=== PATIENT | female | born 1945 | race Caucasian/White ===

== ENCOUNTER 2019-10-03 06:17 | Day surgery (SDC) ==
[2019-10-03] MEDS ORDERED: KEFZOL 1 GM/D5W 1 GM/50 ML IVPB ONE (06:39)
[2019-10-03] MEDS ORDERED: LR 1,000 ML ONE (06:39)
[2019-10-03] MEDS ORDERED: DIPRIVAN 1% ONE (07:14)
[2019-10-03] MEDS ORDERED: NORCURON ONE (07:15)
[2019-10-03] MEDS ORDERED: SODIUM CHLORIDE 0.9% 10 ML ONE (07:15)
[2019-10-03] MEDS ORDERED: XYLOCAINE-MPF 2% ONE (07:15)
[2019-10-03] MEDS ORDERED: SENSORCAINE-MPF 0.5%/EPI 1:200,000 ONE (08:23)
--- NOTE | 2019-10-03 08:27 | EKG Report ---
Test Performed on : 10/03/2019 07:43:59 AM Test Reason : pre op Blood Pressure : / mmHG Vent. Rate : 057 BPM Atrial Rate : 057 BPM P-R Int : 110 ms QRS Dur : 066 ms QT Int : 466 ms P-R-T Axes : 059 069 015 degrees QTc Int : 453 ms Sinus bradycardia. with short IA Nonspecific T wave abnormality Abnormal ECG No previous ECGs available Confirmed by John Curry MD ([id number]) on 10/03/2019 7:35:06 PM
[2019-10-03] MEDS ORDERED: FENTANYL ONE (08:37)
[2019-10-03] MEDS ORDERED: ZOFRAN ONE (08:40)
[2019-10-03] MEDS ORDERED: OFIRMEV 1000 MG/ISOTONIC SOLN 1,000 MG/100 ML BOTTLE ONE (08:40)
[2019-10-03] MEDS ORDERED: ROBINUL ONE (10:05)
--- NOTE | 2019-10-03 11:01 | OPERATIVE NOTE ---
PROCEDURE DATE: 10/03/2019 PREOPERATIVE DIAGNOSES: 1. Right thyroid nodule. 2. Hyperthyroidism. POSTOPERATIVE DIAGNOSES: 1. Right thyroid nodule. 2. Hyperthyroidism. PRINCIPAL PROCEDURE: Total thyroidectomy. SURGEON: Jonelle Malik MD. CEILING CLEANER: Dr. Urmila Kapoor, third year [facility] surgical brace maker. ANESTHESIA: General in addition to local anesthetic. ESTIMATED BLOOD LOSS: 30 mL. DRAINS: A small ANDREIA drain within the neck. INDICATIONS: Ms. Nikki Aponte is a 73-year-old, white female patient of Dr. Mtz who has hyperthyroidism and also a right thyroid nodule. Total thyroidectomy was recommended. FINDINGS: We dissected the right thyroid lobe initially because it had the right thyroid nodule. We identified the recurrent laryngeal nerve on the right and felt we preserved it throughout this case. We also felt we preserved parathyroid tissue on the right. We therefore proceeded with completion total thyroidectomy. The left thyroid lobe appeared to be normal. Again on the left side, we identified the recurrent laryngeal nerve and felt we preserved it throughout its length. We also felt we preserved further parathyroid tissue on the left. There may have been some thyroid tissue left at the ligament of Nguyen on the left side. Otherwise, we felt we had a clean dissection of the thyroid tissue. DESCRIPTION OF PROCEDURE: The patient was brought to the operating room, placed supine, received general anesthesia, and was intubated. Her neck was extended with a roll underneath her shoulders. She was placed in reverse Trendelenburg and her anterior neck, shoulder, and anterior chest were prepped and draped within a sterile field. We measured out a 6 cm in length curvilinear incision anterior neck. It was centered at the midline and the incision was made with a 15 blade scalpel and it was carried down through the skin and subcutaneous tissue to the platysma muscle. The platysma muscle was incised using cautery and then we created subplatysmal planes, both superiorly and inferiorly. We used a Gelpi for self-retaining retraction. We also used handheld retractors meaning Calvin and Elyssafregori. We incised the midline fascia of the neck between the strap muscles and from inferior to superior we identified the thyroid tissue and we dissected the strap muscles off the right thyroid lobe. We took down the superior thyroid vessels with the LigaSure. We took down the middle thyroid vein, again with the LigaSure and we were able to began rolling the right thyroid lobe up into our wound. We used blunt cotton-pusher dissection and also forceps to dissect posteriorly and inferiorly along the right lobe of the thyroid. We brought the thyroid nodule up into our wound. We felt we preserved parathyroid tissue by staying right on the thyroid gland. Posteriorly, we identified the recurrent laryngeal nerve. We took down some inferior thyroid veins and then we carefully dissected the ligament of Nguyen staying anterior to the nerve going into the cricothyroid muscle. We peeled the right thyroid lobe off the trachea with the isthmus. We came across the isthmus with the LigaSure and we removed the right thyroid lobe and isthmus from the field. We dissected the left thyroid lobe in the same manner. We took the strap muscles off the left thyroid lobe. We took down the superior pole vessels, then the middle thyroid vein, and some inferior thyroid veins, and we were able to roll this lobe medially and superiorly up into our wound, and we carefully dissected the posterior aspect of this thyroid lobe. This lobe was not enlarged, it did not have a nodule, it appeared to be normal, and again we took care to identify the recurrent laryngeal nerve. We felt we also preserved parathyroid tissue by staying right on the thyroid gland during the dissection and we removed the left thyroid lobe from the trachea staying anterior to the recurrent laryngeal nerve at its insertion into the cricothyroid muscle. We may have left a little bit of thyroid tissue at the ligament of Nguyen, but other than that, we had a clean dissection of the thyroid tissue. This left thyroid lobe was also sent to the pathologist. Any bleeding was controlled carefully using cautery. We thoroughly irrigated the neck. We placed a small drain in the neck, it was brought out through the lateral aspect of our incision. We closed our incision in layers. The first layer was reapproximating the strap muscles in the midline. We reapproximated the platysma muscle with interrupted 3-0 Vicryl stitches. The skin was closed with a 4-0 Monocryl subcuticular stitch. Dressings were applied. Plans are for her to go to the recovery room and then be admitted overnight to the floor. She tolerated the procedure well. cc: Jonelle Malik MD
[2019-10-03] MEDS ORDERED: ZOFRAN IV PRN (11:34)
[2019-10-03] MEDS: MOTRIN PO SCH ×2 (12:39→22:17)
[2019-10-03] MEDS: TUMS PO SCH ×2 (12:39→16:46)
[2019-10-03 13:41] LABS: URINE SOURCE CLEAN CATCH
[2019-10-03 13:49] LABS: BILIRUBIN URINE NEGATIVE (NEGATIVE); BLOOD URINE NEGATIVE (NEGATIVE); COLOR YELLOW; GLUCOSE URINE NEGATIVE (NEGATIVE); KETONE URINE 10 mg/dL (NEGATIVE); LEUKOCYTES URINE NEGATIVE (NEGATIVE); NITRITE URINE NEGATIVE (NEGATIVE); PROTEIN URINE NEGATIVE (NEGATIVE); SP GRAVITY URINE 1.015; TURBIDITY URINE CLEAR (CLEAR); UROBILINOGEN URINE NORMAL (NORMAL)
[2019-10-03 13:51] LABS: UR EPITHELIAL CELLS <10 /HPF (<10); URINE BACTERIA NEGATIVE /HPF; URINE RBC <10 /HPF (<10); URINE WBC <10 /HPF (<10)
[2019-10-03] MEDS: TYLENOL PO SCH (16:46)
[2019-10-03] MEDS ORDERED: NORCO-7.5 PO PRN (17:00)
[2019-10-03] MEDS: PERIDEX MT SCH (22:17)
[2019-10-04] MEDS: TYLENOL PO SCH ×3 (01:33→17:14)
[2019-10-04] MEDS: MOTRIN PO SCH ×2 (05:52→13:45)
[2019-10-04] MEDS: SYNTHROID PO SCH ×2 (05:52→07:18)
[2019-10-04] MEDS: TUMS PO SCH ×3 (09:16→17:14)
[2019-10-04] MEDS: PERIDEX MT SCH (09:16)
[2019-10-04 15:18] VITALS: BP 174/91
--- NOTE | 2019-10-05 15:24 | DISCHARGE SUMMARY ---
ADMISSION DATE: 10/03/2019 DISCHARGE DATE: 10/04/2019 ADMITTING DIAGNOSES: 1. Right thyroid nodule. 2. Hyperthyroidism. DISCHARGE DIAGNOSES: 1. Right thyroid nodule. 2. Hyperthyroidism. PRINCIPAL PROCEDURE: Total thyroidectomy on 10/03/2019. DISCHARGE DISABILITIES: Full. DISCHARGE DISPOSITION: She will return to our outpatient offices in a week. DISCHARGE MEDICATIONS: Synthroid 100 mcg. DISCHARGE DIET: Regular. HOSPITAL COURSE: Ms. Nikki Garcia is a 73-year-old white female patient Dr. Mtz who has developed a noticeable right thyroid nodule. Thyroid function tests also suggests that she was hyperthyroid. We felt we should proceed with total thyroidectomy. She was admitted on the day of surgery. She went to the operating room, where we felt the operation went well. We identified both recurrent laryngeal nerves and felt we left some parathyroid tissue behind. Drain was left at the time of surgery. She went to the recovery room and then to the [address] [place] [address]. On postop day 1, her voice was essentially normal. Her calcium was 8.6. Her incision was healing well. I removed her drain and it was felt safe to discharge her home under the care of her family. She will take 2 Tums 3 times a day and she will also begin Synthroid 100 mcg daily. She knows to contact me with any problems. Otherwise, I will see her in our outpatient office in 7 to 10 days. cc: Jonelle Malik MD
== END 2019-10-04 18:36 | disposition home or self-care (01) ==
LOC: OR 06:17 → 4N 06:17 → OR 10-04 18:36
PROVIDERS: ATTEND Surgery
PROC: GE.THYR (2019-10-03 08:13)